=== PATIENT | female | born 1970 | race Caucasian/White ===

== ENCOUNTER 2023-12-19 22:40 | Outpatient (OUT) | payer OTHER, SELFPAY ==
--- NOTE | 2023-12-19 22:56 | XR_ITS ---
The [address] [address] Patient Name: RUBENS PHILLIPS MRN: [id number] date: 1970 Sex: F Assigned Patient Location: [facility] Current Patient Location: Accession/Order Number: [id number] Exam Date: 12/19/2023 22:58 Report Date: 12/20/2023 01:12 At the request of: NON-STAFF PHYSICIAN Procedure: XR finger LT min 2V EXAM: PLAIN FILM OF FINGER LEFT HISTORY: Trauma TECHNIQUE: 3 views of the left index finger are submitted for review. COMPARISON: None. FINDINGS: No acute displaced fracture.. Bone mineralization is within normal limits. Joint spaces are maintained. Soft tissues are edematous. There is no radiopaque foreign body. XR/XR finger LT min 2V IMPRESSION: No acute displaced fracture. Electronically authenticated by: LELE KEMP Date: 12/20/2023 01:12
== END 2023-12-19 22:41 | disposition home or self-care (01) ==
LOC: RAD 22:49
DX: S61.211A Laceration without foreign body of left index finger without damage to nail, initial encounter (principal)
CPT/HCPCS: 73140